=== PATIENT | female | born 1930 | race Caucasian/White ===

== ENCOUNTER 2017-10-31 16:16 | Outpatient (CLI) | payer MEDICARE, BC ==
--- NOTE | 2017-10-31 17:14 | CT ---
CT PELVIS WITHOUT CONTRAST 10/31/17 HISTORY: S32.9XXA, nondisplaced fracture of pelvis. COMPARISON: None. FINDINGS: There is a fracture of the left sacrum, zone 1 through S1, S2 and S3. These are all lateral to the ne ural foramina. There is no significant pelvic sidewall hematoma. The iliac contour is nonaneurysmal. No dilated loops of bowel in the pelvis. The obturator rings are intact. Mild narrowing of the pubic symphysis. There is acetabular osteophyte s bilaterally. Moderate to severe degenerative disc space narrowing at L4-5 and L5-S1. Bilateral neural foraminal na rrowing at L5-S1. The right sacrum is intact. IMPRESSION: Left zone I S1-S3 sacral fractures. No SI joint widening. No crescent fracture of the left ileum is p resent. POS: [facility]
== END 2017-10-31 16:17 | disposition home or self-care (01) ==
LOC: SCSCT 16:16
PROVIDERS: ATTEND Orthopaedic Surgery
DX: S32.9XXA Fracture of unspecified parts of lumbosacral spine and pelvis, initial encounter for closed fracture (principal); S32.10XA Unspecified fracture of sacrum, initial encounter for closed fracture
CPT/HCPCS: 72192